=== PATIENT | female | born 1980 | race Caucasian/White ===

== ENCOUNTER 2017-07-01 05:02 | Emergency (ER) | payer BC, OTHER ==
[2017-07-01] MEDS ORDERED: Oseltamivir CAP* 75 MG CAP PO ONE (07:31)
[2017-07-01] MEDS ORDERED: Sulfamethox/Trimethoprim DS 800/160* TAB PO ONE (08:00)
--- NOTE | 2017-07-01 08:14 | ED ---
Stone Johnson Nikita, scribed for Eyad Oleary MD on 07/01/17 at 0734 . Influenza-Like Illness - HPI Summary HPI Summary: This patient is a 37 year old F BIBA presenting to ED with a chief complaint of flu symptoms since 4 days ago. The patient rates the pain 5/10 in severity. Symptoms aggravated by nothing. Symptoms alleviated by nothing (pt took Ibuprofen 600 mg at 0230). Patient reports cough, rhinorrhea, fever, sore throat , and body aches. - History of Current Complaint Chief Complaint: EDFluSymptoms Time Seen by Provider: 07/01/17 07:31 Hx Obtained From: Patient Onset/Duration: Sudden Onset, Lasting Days, Still Present Severity: Moderate Associated Signs & Symptoms: Fever, Cough, Sore Throat - Allergy/Home Medications Allergies/Adverse Reactions: Allergies Allergy/AdvReac Type Severity Reaction Status Date / Time No Known Allergies Allergy Verified 07/01/17 06:01 PMH/Surg Hx/FS Hx/Imm Hx Endocrine/Hematology History: Denies: Hx Diabetes, Hx Thyroid Disease Cardiovascular History: Denies: Hx Hypertension Respiratory History: Denies: Hx Asthma, Hx Chronic Obstructive Pulmonary Disease (COPD) GI History: Denies: Hx Ulcer - Immunization History Date of Tetanus Vaccine: unk Date of Influenza Vaccine: none Infectious Disease History: No Infectious Disease History: Denies: Hx Hepatitis, Hx Human Immunodeficiency Virus (HIV), Traveled Outside the [place] in Last 30 Days - Family History Known Family History: Negative: Cardiac Disease, Hypertension, Diabetes - Social History Alcohol Use: Rare Substance Use Type: Reports: None Smoking Status (MU): Light Every Day Tobacco Smoker Review of Systems Positive: Fever Positive: Sore Throat, Other - rhinnorhea Positive: Cough Positive: Other - body aches All Other Systems Reviewed And Are Negative: Yes Physical Exam - Summary Physical Exam Summary: VITAL SIGNS: Reviewed. GENERAL: ~Patient is a well-developed and nourished FEMALE who is lying comfortable in the stretcher. ~Patient is not in any acute respiratory distress. HEAD AND FACE: No signs of trauma. ~No ecchymosis, hematomas or skull depressions. No sinus tenderness. EYES: PERRLA, EOMI x 2, No injected conjunctiva, no nystagmus. EARS: Hearing grossly intact. Ear canals and tympanic membranes are within normal limits. MOUTH: Oropharynx within normal limits. NECK: Supple, trachea is midline, no adenopathy, no JVD, no carotid bruit, no c- spine tenderness, neck with full ROM. CHEST: Symmetric, no tenderness at palpation LUNGS: Clear to auscultation bilaterally. No wheezing or crackles. CVS: Regular rate and rhythm, S1 and S2 present, no murmurs or gallops appreciated. ABDOMEN: Soft, non-tender. No signs of distention. No rebound no guarding, and no masses palpated. Bowel sounds are normal. EXTREMITIES: FROM in all major joints, no edema, no cyanosis or clubbing. NEURO: Alert and oriented x 3. No acute neurological deficits. Speech is normal and follows commands. SKIN: Dry and warm Triage Information Reviewed: Yes Vital Signs On Initial Exam: Initial Vitals Temp Pulse Resp BP Pulse Ox 98.3 F 105 18 105/61 96 07/01/17 05:04 07/01/17 05:04 07/01/17 05:04 07/01/17 05:04 07/01/17 05:04 Vital Signs Reviewed: Yes Diagnostics - Vital Signs Vital Signs Temp Pulse Resp BP Pulse Ox 07/01/17 07:32 99.6 F 07/01/17 07:30 89 97 07/01/17 05:04 98.3 F 105 18 105/61 96 - Laboratory Lab Results: Lab Results 07/01/17 Range/Units 05:15 Influenza A (Rapid) Negative (Negative) Influenza B (Rapid) Positive H (Negative) Lab Statement: Any lab studies that have been ordered have been reviewed, and results considered in the medical decision making process. Flu Symptom Course/Dx - Course Assessment/Plan: This patient is a 37 year old F BIBA presenting to ED with a chief complaint of flu symptoms since 4 days ago. Influenza B was positive. The pt was given Tamiflu. The pt is hemodynamically stable, alert and oriented x3. She is eating and drinking without N/V. She will be D/C home with follow up with PCP. - Diagnoses Differential Diagnosis/HQI/PQRI: Positive: Bronchitis, Influenza, Upper Respiratory Infection Provider Diagnoses: Influenza Discharge - Discharge Plan Condition: Stable Disposition: HOME Prescriptions: Oseltamivir CAP* [Tamiflu CAP*] 75 mg PO BID #10 cap Patient Education Materials: Influenza (ED) Referrals: Branden SNOWDEN,Bandar Warner [Primary Care Provider] - (Follow up with your PCP in 1-2 days.) Additional Instructions: RETURN TO THE ED FOR ANY NEW OR WORSENING SYMPTOMS. The documentation as recorded by the Stone hardin Nikita accurately reflects the service I personally performed and the decisions made by me, Eyad Oleary MD.
== END 2017-07-01 08:03 | disposition home or self-care (01) ==
LOC: ED 05:02
DX: J11.1 Influenza due to unidentified influenza virus with other respiratory manifestations (principal); Z72.0 Tobacco use
CPT/HCPCS: 87502; 99282; A9270-GY

== ENCOUNTER 2017-12-06 11:23 | Emergency (ER) | payer BC, OTHER ==
[2017-12-06 11:40] VITALS: BP 124/76
--- NOTE | 2017-12-06 12:06 | UC ---
Complaint Female HPI - HPI Summary HPI Summary: Pt is a 37 y/o F presents to c/o frequent urination. Describes urination as burning and had hematuria this morning. 3 days ago she had a tooth pulled and was prescribed amoxicillin for infection and it was at this time she thought she might have a yeast infection. She was also prescribed another medication that she cannot recall the name of that caused her arms and face to go numb and tingle. PMHx of UTI. Denies abnormal vaginal discharge, back pain, abdominal pain, and diarrhea. No chance of due to PSHx of hysterectomy. - History Of Current Complaint Chief Complaint: UCGU Stated Complaint: URINARY COMPLAINT Time Seen by Provider: 12/06/17 11:35 Hx Obtained From: Patient Hx Last Menstrual Period: 03/14 ?: No Onset/Duration: Lasting Days, Still Present Severity Currently: Moderate Pain Intensity: 5 Pain Scale Used: 0-10 Numeric Character: Burning Aggravating Factor(s): Urination Associated Signs And Symptoms: Negative: Back Pain, Vaginal Discharge - Allergies/Home Medications Allergies/Adverse Reactions: Allergies Allergy/AdvReac Type Severity Reaction Status Date / Time No Known Allergies Allergy Verified 12/06/17 11:40 PMH/Surg Hx/FS Hx/Imm Hx Respiratory History: Asthma GI/ History: Other - UTI Other GI/ History: . - Surgical History Surgical History: Yes Surgery Procedure, Year, and Place: partial hysterectomy 03/14 - Family History Known Family History: Negative: Cardiac Disease, Hypertension, Diabetes - Social History Alcohol Use: Rare Substance Use Type: None Smoking Status (MU): Light Every Day Tobacco Smoker Type: Cigarettes Review of Systems Gastrointestinal: Abdominal Pain - NEGATIVE, Diarrhea - NEGATIVE Genitourinary: Dysuria, Hematuria, Frequency, Vaginal/Penile Discharge - NEGATIVE Musculoskeletal: Other: - NEGATIVE: back pain All Other Systems Reviewed And Are Negative: Yes Physical Exam - Summary Physical Exam Summary: General: well-appearing, no pain distress Skin: warm, color reflects adequate perfusion, dry Head: normal Eyes: EOMI, VENECIA ENT: normal Neck: supple, nontender Respiratory: CTA, breath sounds present Cardiovascular: RRR Abdomen: mild tenderness to palpation in suprapubic region, soft, Bowel: present Musculoskeletal: normal, strength/ROM intact Neurological: sensory/motor intact, A&O x3 Psychological: affect/mood appropriate Triage Information Reviewed: Yes Vital Signs: Initial Vital Signs Temp 98.9 F 12/06/17 11:35 Pulse 88 12/06/17 11:35 Resp 18 12/06/17 11:35 BP 124/76 12/06/17 11:35 Pulse Ox 99 12/06/17 11:35 Vital Signs Reviewed: Yes Complaint Female Dx - Course Course Of Treatment: F/U PMD; RECHECK SOONER IF WORSE. - Differential Dx/Diagnosis Provider Diagnoses: UTI Discharge - Sign-Out/Discharge Documenting (check all that apply): Patient Departure - Discharge Plan Condition: Stable Disposition: HOME Prescriptions: Fluconazole 150 MG (NF) [Diflucan 150 mg (NF)] 150 mg PO ONCE PRN #1 tab PRN Reason: Pain Sulfamethox/Trimethoprim DS* [Bactrim DS 800/160 TAB*] 1 tab PO BID #20 tab Patient Education Materials: Urinary Tract Infection in Women (ED) Referrals: Branden SNOWDEN,Bandar Warner [Primary Care Provider] - Additional Instructions: FOLLOW UP WITH YOUR DOCTOR IF NOT COMPLETELY IMPROVED. GET RECHECKED FOR ANY WORSENING OF YOUR CONDITION; PAIN, FEVER, YOU FEEL ILL OR QUESTIONS OR CONCERNS. - Billing Disposition and Condition Condition: STABLE Disposition: Home
== END 2017-12-06 12:05 | disposition home or self-care (01) ==
LOC: UCEAST 11:23
DX: N39.0 Urinary tract infection, site not specified (principal); F17.210 Nicotine dependence, cigarettes, uncomplicated
CPT/HCPCS: 81003; 87077; 87086; 87186; 99212; G0463